=== PATIENT | male | born 1980 | race Caucasian/White ===

== ENCOUNTER 2022-02-07 05:13 | Emergency (ER) | payer OTHER ==
[2022-02-07] MEDS ORDERED: AMOX TR-K CLV1 EAC4 PO (05:41)
== END 2022-02-07 05:51 | disposition home or self-care (01) ==
LOC: FER 05:13
DX: H66.91 Otitis media, unspecified, right ear (principal); F17.200 Nicotine dependence, unspecified, uncomplicated
CPT/HCPCS: 99282